=== PATIENT | female | born 1995 | race Caucasian/White ===

== ENCOUNTER 2018-04-05 16:24 | Inpatient (IN) ==
[2018-04-05] MEDS ORDERED: ONDANSETRON HCL/PF 2 MG/ML VIAL IV PRN ×2 (16:37→20:04)
[2018-04-05] MEDS ORDERED: DEXTROSE 5%-LACTATED RINGERS 1,000 ML IV PRN (16:37)
[2018-04-05] MEDS ORDERED: OXYTOCIN/DEXTROSE 5%-WATER 30 UNITS/500 ML BAG IV ONE (16:37)
[2018-04-05] MEDS ORDERED: RINGER'S SOLUTION,LACTATED 1,000 ML IV ONE (16:37)
[2018-04-05] MEDS ORDERED: BUPIVACAINE HCL/0.9 % NACL/PF 250 ML EP PRN (20:04)
[2018-04-05] MEDS ORDERED: NALOXONE HCL 1 MG/1 ML SYRG IV PRN (20:04)
[2018-04-05] MEDS ORDERED: BUPIVACAINE HCL/PF 30 ML VIAL EP SCH (20:15)
--- NOTE | 2018-04-05 20:47 | ANES ---
Anesthesia Pre Procedure Eval Vitals/Labs: Last Vital Signs Temp 36.7 C 04/05/18 17:21 Pulse 112 H 04/05/18 17:21 Resp 18 04/05/18 17:21 BP 128/77 04/05/18 17:21 Pulse Ox 99 04/05/18 17:21 HOME MEDICATIONS NK 03/03/18 [Last Taken Unknown] Allergies/Adverse Reactions: Allergies Allergy/AdvReac Type Severity Reaction Status Date / Time tree and shrub pollen Allergy Unknown hives, Verified 04/05/18 16:41 sweling No Known Drug Allergies Allergy Verified 04/05/18 16:41 - Planned Procedure Planned Procedure: Labor epidural Medication List Reviewed:: Yes Allergies Verified: Yes Medical History (Last Reviewed 03/29/18 @ 14:00 by Eloina Quinteros) Anemia Onset Date: 02/07/14 Body piercing Onset Date: Unknown Easy bruising Onset Date: 02/07/14 Endometriosis Onset Date: ~12/2016 Headache Onset Date: Unknown Psoriasis Onset Date: Unknown Tattoo Onset Date: Unknown Abnormal Pap smear of cervix Onset Date: ~2006 Meningitis Onset Date: Unknown Vaginitis Onset Date: 01/01/13 Sinusitis Onset Date: Unknown Surgical History (Last Reviewed 03/29/18 @ 14:00 by Eloina Quinteros) History of arthroplasty of left ankle Onset Date: ~2006 History of laparoscopy Onset Date: 01/13/17 History of sinus surgery Onset Date: ~2006 History of surgery on arm Onset Date: 2006 Family History (Last Reviewed 03/29/18 @ 14:00 by Eloina Quinteros) Father Hernia Mother COPD (chronic obstructive pulmonary disease) Breast cancer Grandfather Myocardial infarction Grandmother Arthritis Grandfather No problems noted. Grandmother Cancer Sister Epilepsy - Cardiovascular Tolerates Activity: Good Heart Sounds: S1 & S2, Regular - Anesthesia Assessment and Plan ASA Class: PS, II Anesthesia Type Plan: Epidural
--- NOTE | 2018-04-05 21:08 | ANES ---
Anesthesia Procedure Note Procedure Note: ANESTHESIA PROCEDURE NOTE Date of Procedure: 04/05/2018. Time of procedure: 2049. Performed by: Renan Segovia CRNA Product Designer: None. Preprocedure diagnosis: Active labor. Post procedure diagnosis: Same. Procedure: Insertion of labor epidural. Indications: The patient is a 22 -year-old female in active labor requesting labor epidural for pain management. Findings: See below. Details of the procedure: The patient was placed in a sitting position. DuraPrep as well as Betadine swabs X3 was applied to the patient's back. Patient was then draped in a sterile fashion. Lidocaine 1% was infiltrated to the skin and subcutaneous tissues at the level of the L3-4 interspace. The epidural space was identified using a 18-gauge Tuohy needle with loss-of- resistance technique. Epidural catheter was inserted to a depth of 11 centimeters at skin. Negative test dose was elicited using 3 mL of 1.5% preservative-free lidocaine plus epinephrine 1 200,000. The epidural catheter was then taped and secured in place. A loading dose of 8 mL of 0.25% preservative-free bupivacaine was administered to the epidural catheter after negative aspiration for blood and CSF. EBL: Minimal. Fluids: N/A. Specimen: N/A. Post procedure condition: The patient tolerated the procedure well. No complications were noted. Thank you for this consultation. Renan Segovia CRNA
--- NOTE | 2018-04-05 21:09 | ANES ---
Post Anesthesia Assessment - Vital Signs Vitals: Last Vital Signs Temp 37.0 C 04/05/18 21:07 Pulse 128 H 04/05/18 21:07 Resp 20 04/05/18 21:07 BP 125/58 04/05/18 21:07 Pulse Ox 100 04/05/18 21:07 Airway Patency: Normal - Mental Status Level Of Consciousness: Awake - N/V Assessment Nausea/Vomiting Presence: None Dehydration:: No
[2018-04-05] MEDS ORDERED: CALCIUM CARBONATE 500 MG TAB.CHEW PO PRN (22:20)
--- NOTE | 2018-04-06 00:45 | PN ---
Progess Note - Interim Date: 04/06/18 Time: 00:43 Narrative: 04/06/18 00:43 Patient comfortable with epidural Vital signs stable. Pitocin at 12 increased to 15 mu/min. FHT: 140 baseline, reassuring Contractions q 2-5 min Cervix: 7/70/-2, AROM-clear Impression: Intrauterine at 38-4/7 weeks in labor Plan: Continue present plan
--- NOTE | 2018-04-06 00:52 | HP ---
Chief Complaint - Chief Complaint Date of Service: 04/06/18 Time of Service: 00:45 Chief Complaint: contractions History of Present Illness: 22 yo admitted at 38 3/7 weeks on 04/05/18 in labor. Patient complains of worsening contractions/pain. This complicated by anxiety. Rh negative Rubella nonimmune GBS negative Medical History (Last Reviewed 04/06/18 @ 00:48 by Ramón Leung DO) Anemia Onset Date: 02/07/14 Body piercing Onset Date: Unknown Easy bruising Onset Date: 02/07/14 Endometriosis Onset Date: ~12/2016 Headache Onset Date: Unknown Psoriasis Onset Date: Unknown Tattoo Onset Date: Unknown Abnormal Pap smear of cervix Onset Date: ~2006 Meningitis Onset Date: Unknown Vaginitis Onset Date: 01/01/13 Sinusitis Onset Date: Unknown Surgical History: Surgical History (Last Reviewed 04/06/18 @ 00:48 by Ramón Leung DO) History of arthroplasty of left ankle Onset Date: ~2006 History of laparoscopy Onset Date: 01/13/17 History of sinus surgery Onset Date: ~2006 History of surgery on arm Onset Date: 2006 Family History: Family History (Last Reviewed 04/06/18 @ 00:48 by Ramón Leung DO) Father Hernia Mother COPD (chronic obstructive pulmonary disease) Breast cancer Grandfather Myocardial infarction Grandmother Arthritis Grandfather No problems noted. Grandmother Cancer Sister Epilepsy Social History: Preferred Language Jordanian Abuse History No History of abuse Psych History Hx of Anxiety,Currently on Meds Review Of Systems (GEN) - Review of Systems Generalized/Overall Review: Present: No Symptoms Reported EENTM: Present: No Symptoms Reported Respiratory: Present: No Symptoms Reported Cardiac: Present: No Symptoms Reported Abdominal: Present: No Symptoms Reported Genitourinary: Present: Other - contractions, vaginal pressure Musculoskeletal: Present: No Symptoms Reported Neurological: Present: No Symptoms Reported Skin: Present: No Symptoms Reported Endocrine: Present: No Symptoms Reported Allergies/Adverse Reactions: Allergies Allergy/AdvReac Type Severity Reaction Status Date / Time tree and shrub pollen Allergy Unknown hives, Verified 04/05/18 16:41 sweling No Known Drug Allergies Allergy Verified 04/05/18 16:41 Home Medications: HOME MEDICATIONS NK 03/03/18 [Last Taken Unknown] Exam - Exam Vital Signs: Vital Signs - Last Taken Temp 37.0 C 04/05/18 21:07 Pulse 128 H 04/05/18 21:07 Resp 20 04/05/18 21:07 BP 125/58 04/05/18 21:07 Pulse Ox 100 04/05/18 21:07 Constitutional: Present: Alert, Oriented x3, Cooperative, Mild distress ENT Exam: Present: hearing grossly normal Respiratory: Present: lungs clear, no respiratory distress Cardiovascular/Chest: Present: no edema, tachycardia Abdomen: Present: soft, nontender, other - gravid /Rectal: Present: Other - cervix 4/75/-2 Extremity: Present: normal range of motion, no pedal edema, no calf tenderness Skin Exam: Present: normal color, warm/dry, no cyanosis Neurologic: Present: alert, oriented x 3 Appearance: Present: appropriate appearance Eye contact: Present: cooperative, good eye contact, normal speech Thoughts: Present: normal thought pattern, other - anxious Assessment/Plan - Assessment/Plan (1) Labor established Assessment: admit for routine management of labor. Epidural PRN. Problem: Acute (2) Rh negative status during Problem: Acute (3) Rubella non-immune status, antepartum Problem: Acute
[2018-04-06] MEDS ORDERED: HYDROCORTISONE 30 APPL TUBE TP PRN (04:27)
[2018-04-06] MEDS ORDERED: GLYCERIN/WITCH HAZEL LEAF 40 APPL BOX TP PRN (04:27)
[2018-04-06] MEDS ORDERED: BISACODYL 10 MG SUPP.RECT RC PRN (04:27)
[2018-04-06] MEDS ORDERED: oxyCODONE HCL/ACETAMINOPHEN 1 TAB TABLET PO PRN ×2 (04:27)
[2018-04-06] MEDS ORDERED: SENNOSIDES 8.6 MG TABLET PO PRN (04:27)
[2018-04-06] MEDS ORDERED: OXYTOCIN/DEXTROSE 5%-WATER 30 UNITS/500 ML BAG IV ONE (04:27)
[2018-04-06] MEDS ORDERED: BENZOCAINE/MENTHOL 81 SPRAY CAN TP PRN (04:27)
--- NOTE | 2018-04-06 04:29 | OR ---
Operative Report - Dictated Report Narrative: Spontaneous vaginal delivery of viable female at 0401 at 04/06/2018 with Apgars 9 and 9, weighing 3678 g in ROBE position with tight nuchal cord 1. Cord clamping delayed approximately 1 minute Placenta delivered complete, intact, with three vessel cord Estimated blood loss: less than 50 ml Anesthesia: epidural Lacerations: None History for MU Definition: * The number of deliveries resulting in a live the patient experienced prior to current hospitalization * The previous delivery of live twins or any live multiple gestation is considered one live event. *If primagravida or nulliparous is documented select zero for the number of previous live births. Live Events: 2
[2018-04-06] MEDS: IBUPROFEN 800 MG TABLET PO PRN ×3 (06:54→22:55)
[2018-04-06] MEDS: DOCUSATE SODIUM 100 MG CAPSULE PO SCH ×2 (11:17→20:55)
[2018-04-06] MEDS ORDERED: RHO(D) IMMUNE GLOBULIN 1,500 UNIT SYRINGE IM ONE (21:00)
[2018-04-07] MEDS: IBUPROFEN 800 MG TABLET PO PRN ×2 (06:58→18:14)
--- NOTE | 2018-04-07 08:30 | PN ---
Subjective - Date and Time Seen Date: 04/07/18 Time: 08:30 Objective - Vitals Vitals: Last Vital Signs Temp 36.3 C 04/07/18 07:02 Pulse 76 04/07/18 07:02 Resp 16 04/07/18 07:02 BP 113/59 04/07/18 07:02 Pulse Ox 100 04/07/18 07:02 Patient denies complaints. Lochia wnl Abdomen - soft, nontender Uterus - firm, at umbilicus - 1 No calf tenderness Impression: day #1 - s/p spontaneous vaginal delivery. Plan: Continue routine care Cauti Physician Documentation - Urinary Catheter Management Urethral ([place]) Date of Insertion: 04/05/18 Time of Insertion: 21:25 Date of Removal: 04/06/18 Time of Removal: 03:50 Assessment/Plan - Problems/Diagnosis (1) Labor established Problem: Acute (2) Rh negative status during Problem: Acute (3) Rubella non-immune status, antepartum Problem: Acute
[2018-04-07] MEDS: DOCUSATE SODIUM 100 MG CAPSULE PO SCH ×2 (11:29→21:14)
[2018-04-08] MEDS: IBUPROFEN 800 MG TABLET PO PRN (06:47)
[2018-04-08] MEDS: DOCUSATE SODIUM 100 MG CAPSULE PO SCH ×2 (06:48→08:29)
[2018-04-08 07:04] VITALS: BP 117/61
--- NOTE | 2018-04-08 12:03 | PN ---
Subjective - Date and Time Seen Date: 04/08/18 Time: 12:03 Objective - Vitals Vitals: Last Vital Signs Temp 37.2 C 04/08/18 06:50 Pulse 83 04/08/18 06:50 Resp 18 04/08/18 06:50 BP 117/61 04/08/18 06:50 Pulse Ox 97 04/08/18 06:50 Patient denies complaints. Lochia wnl Abdomen - soft, nontender Uterus - firm, at umbilicus - 2 No calf tenderness Impression: day #2 - s/p spontaneous vaginal delivery. Plan: Routine discharge instructions Cauti Physician Documentation - Urinary Catheter Management Urethral ([place]) Date of Insertion: 04/05/18 Time of Insertion: 21:25 Date of Removal: 04/06/18 Time of Removal: 03:50 Assessment/Plan - Problems/Diagnosis (1) Labor established Problem: Acute (2) Rh negative status during Problem: Acute (3) Rubella non-immune status, antepartum Problem: Acute
== END 2018-04-08 14:20 | disposition home or self-care (01) | DRG 775 ==
LOC: OB 16:24
PROVIDERS: ADMIT Obstetrics & Gynecology; ATTEND Obstetrics & Gynecology
CPT/HCPCS: 59025; 85460; J2790